=== PATIENT | male | born 1970 | race Caucasian/White ===

== ENCOUNTER 2016-10-25 12:25 | Emergency (ER) | payer OTHER ==
--- NOTE | 2016-10-25 15:17 | DIAGNOSTIC IMAGING REPORT ---
PROCEDURE: XR CHEST 1 VIEW INDICATION: CHEST PAIN TECHNIQUE: Portable AP view 03:08 p.m. COMPARISON: Chest 06/28/2015 FINDINGS: Lungs are clear. Heart and mediastinum are normal. Thorax is normal. IMPRESSION: 1. Negative chest.
--- NOTE | 2016-10-25 17:11 | ED CLINICAL REPORT ---
Clinical Report - Physicians/Mid Levels [facility] [address] [place] [address] 10/25/2016 12:26 Patient: MAGO KAUR Time Seen: 12:45. Arrived- By private vehicle. Historian- patient. HISTORY OF PRESENT ILLNESS Chief Complaint: CHEST PAIN. At its maximum, severity described as 7 / 10. When seen in the E.D., severity described as 1 / 10. Modifying factors- worsened by exertion. Relieved by rest. It is described as aching and it is described as located in the central chest area and radiating to the neck. This started about 2 weeks ago and is still present but is better now. It was abrupt in onset and has been constant and waxing/waning. Onset during moderate exertion. The patient has had nausea. No vomiting. He has had difficulty breathing ("when it happens it takes my breath away"). REVIEW OF SYSTEMS No chills, fever, sweats, calf pain or cough. No pedal edema, abdominal pain, black stools, bloody stools or constipation. He has had palpitations. He has had mild loose stools (chronically). He has had mild transient dizziness described as a light-headedness. All systems otherwise negative, except as recorded above. PAST HISTORY [facility] - [facility]. Problems: Diabetes Mellitus. Head Injury. Contusion. Fall. Colitis. GERD. Cellulitis. Back Pain. Additional Surgeries: Hernia Repair. Knee Surgery. Vasectomy. Medications: Claritin Oral. MetFORMIN HCl Oral. Lipitor Oral. PriLOSEC Oral. Allergies: Sulfa Antibiotics. SOCIAL HISTORY Smoker- current status unknown. No alcohol use or drug use. FAMILY HISTORY Cancer in first-degree relative (father). multiple family members with melanoma. ADDITIONAL NOTES The nursing notes have been reviewed. PHYSICAL EXAM Vital Signs: 10/25/2016 12:31 BP: 122/86. HR: 91. RR: 20. O2 saturation: 95%. Temp: 98.4 F. Have been reviewed. Appearance: Alert. No acute distress. Eyes: Pupils equal, round and reactive to light. ENT: Pharynx normal. Neck: Normal inspection. Neck supple. CVS: Normal heart rate and rhythm. Heart sounds normal. Respiratory: No respiratory distress. Breath sounds normal. Abdomen: Soft and nontender. Bowel sounds normal. No organomegaly. No mass. Back: Normal external inspection. No CVA tenderness. Skin: Skin warm and dry. Normal skin color. Normal skin turgor. Extremities: Extremities exhibit normal ROM. No calf tenderness. No lower extremity edema. LABS, X-RAYS, AND EKG EKG: Nondiagnostic Q waves in lead II, III and aVF. Sinus arrhythmia. Prior EKG unavailable. The study has been independently viewed by me. Chest X-ray: No acute disease. The X-rays were independently viewed by me. Laboratory Tests: CBC w Diff: (BISI: 10/25/2016 12:50) ( MsgRcvd 10/25/2016 13:16) Final results Test Result Flag Units (Reference) WHITE BLOOD COUNT 9.7 K/uL (4.5-11.5) RED BLOOD COUNT 5.37 M/uL (4.50-5.90) HEMOGLOBIN 15.6 gm/dL (13.5-17.5) HEMATOCRIT 46.7 % (41.0-53.0) MEAN CELL VOLUME 87 fL (80-100) MEAN CORPUSCULAR HGB 29 pg (26-34) MEAN CORPUSCULAR HGB CONC 33 g/dL (31-37) RED CELL DISTRIBUTION WIDTH 12.9 % (11.6-14.8) PLATELET COUNT 254 K/uL (150-400) NEUTROPHIL % 70.8 % (50-75) LYMPH % 22.0 L % (25-40) MONO % 6.3 % (3-14) EOSINOPHIL % 0.5 % (0-4) BASOPHIL % 0.4 % (0-2) [id number]: (BISI: 10/25/2016 12:50) ( MsgRcvd 10/25/2016 15:29) Final results Test Result Flag Units (Reference) D-DIMER QUANTITATIVE < 0.27 L ug/mLFEU (0.27-0.52) The primary value of this quantitative assay relates toits negative predictive value (i.e. exclusion) of pulmonaryembolism/deep vein thrombosis/DIC.Elevated levels of d-dimer may also occur with:, age, cancer, inflammation, liver disease,post-op, infection, hematoma, coronary disease, peripheralarteriopathy, bleeding disorders and thrombolytic treatment.Results should be correlated with other clinical andradiological data.Testing Methodology: Latex Immunoassay CHEM 13 PANEL: (BISI: 10/25/2016 12:50) ( MsgRcvd 10/25/2016 13:34) Final results Test Result Flag Units (Reference) GLUCOSE 105 mg/dL (70-110) BUN 16 mg/dL (7-18) CREATININE 1.0 mg/dL (0.6-1.3) Estimated GFR >60 mL/min Estimated GFR- >60 mL/min Note: Persistent reduction over 3 months in eGFR<60 mL/min/1.73 m2 defines CKD. Patients with eGFR values>=60 mL/min/1.73 m2 may also have CKD if evidence ofpersistent proteinuria. Additional information may be foundat [email or web address]. SODIUM 142 mmol/L (136-145) POTASSIUM 3.9 mmol/L (3.5-5.1) CHLORIDE 106 mmol/L (98-107) CARBON DIOXIDE 23 mmol/L (21-32) CALCIUM 8.9 mg/dL (8.5-10.1) TOTAL PROTEIN 7.7 g/dL (6.4-8.2) ALBUMIN 4.1 g/dL (3.3-5.0) BILIRUBIN, TOTAL 0.8 mg/dL (0.0-1.0) ALKALINE PHOSPHATASE 89 U/L (46-116) AST (SGOT) 26 U/L (15-37) ALT (SGPT) 65 U/L (12-78) MAGNESIUM 1.7 L mg/dL (1.8-2.4) CPK 99 U/L (24-260) TROPONIN I <0.05 ng/mL (0.00-1.5) TROPONIN REFERENCE RANGE:<0.1 NEGATIVE0.1-1.5 INDETERMINANT>1.5 POSITIVE . PROGRESS AND PROCEDURES Course of Care: Patient is stable. Discussed case with patient's primary care provider, (I spoke with Dr. Jain. I reviewed the patient's history, examination findings and results of his studies. He agrees that given the duration of the patient's symptoms that acute ischemia is unlikely. However, he would like him to be seen in the office tomorrow by his PA, Todd Hunter. They will arrange for a stress test and further workup.). Reviewed test results and need for additional work-up. Agreed upon treatment plan. Health care provider will see patient in office. Patient/family counseled. Old medical records reviewed. Disposition: Discharged. Condition: stable. CLINICAL IMPRESSION Chest pain. INSTRUCTIONS No strenuous activity. Rest. Do not work until released. Avoid stimulants (such as cigarettes, coffee, cold medicines, sinus medicines, street drugs). (Follow up with Dr. Jain at the [facility] tomorrow as discussed). Warnings: Further evaluation is necessary. GENERAL WARNINGS: Return or contact your physician immediately if your condition worsens or changes unexpectedly, if not improving as expected, or if other problems arise. Your Current Medications: CONTINUE TAKING THE FOLLOWING MEDICATIONS: Claritin Oral. Lipitor Oral. MetFORMIN HCl Oral. PriLOSEC Oral. OTC Medications: Aspirin 325 mg (available over the counter): take 1 orally every 24 hours. Dispense thirty (30). No refills. Follow-up: Follow up with a principal consulting engineer- as recommended by your primary care physician. Understanding of the discharge instructions verbalized by patient. Follow-up with: [facility], , , [address], , [place], [address] Follow up tomorrow. Call for an appointment. (Electronically signed by Esdras Hernández MD 10/27/2016 22:54)
--- NOTE | 2016-10-25 17:11 | ED ORDER SUMMARY ---
..... Patient: MAGO KAUR OrderSheet [facility] VisitID: [id number] [address] [place] [address] 45y, M Registration Date/Time: 10/25/2016 ORDER SHEET Weight: 116.5 kg (stated) Allergies: Sulfa Antibiotics GENERAL ORDERS: Medication Aide (Continuous) (13:03 10/25/2016 LWhalen R.N. per protocol) (13:05 LWhalen R.N.) (13:07 LNations ER Tech1) Cardiac Panel Stat (13:04 10/25/2016 LWhalen R.N. per protocol) (Ack 13:04 Camner) (19:12 LWhalen R.N.) Oxygen (2 L/min) (NC) (13:04 10/25/2016 LWhalen R.N. per protocol) (13:05 LWhalen R.N.) Pulse oximeter (13:10/25/2016 LWhalen R.N. per protocol) (13:05 LWhalen R.N.) EKG - ER Stat (13:04 10/25/2016 LWhalen R.N. per protocol) (Ack 13:04 Dmitriyrsheri) (13:04 KHoerner) Vitals (13:04 10/25/2016 LWhalen R.N. per protocol) (13:05 LWhalen R.N.) D-Dimer Urgent (14:56 10/25/2016 Lary STODDARD) (Ack 14:59 JACKoelizandro) (19:12 LWhalen R.N.) Chest 1V Urgent (14:56 10/25/2016 Lary STODDARD) (Ack 14:59 Blake) (18:00 Adry R.N.) (18:00 Wing) MEDICATION ORDERS: Aspirin PO 325 mg (NOW) (13:04 10/25/2016 LWhalen R.N. per protocol) (13:04 LWhalen R.N.) IV FLUIDS: IV Saline Lock (13:04 10/25/2016 LWhalen R.N. per protocol) (13:05 LWhalen R.N.) ORDER SHEET NOTES: [Electronically signed by Mary Regalado R.N. (19:12 10/25/2016)] [Electronically signed by Esdras Hernández MD (22:54 10/27/2016)] [Electronically locked/signed by Mary Regalado R.N. (19:12 10/25/2016)]
--- NOTE | 2016-10-25 17:11 | ED ORDER SUMMARY ---
..... Patient: MAGO KAUR OrderSheet [facility] VisitID: [id number] [address] [place] [address] 45y, M Registration Date/Time: 10/25/2016 ORDER SHEET Weight: 116.5 kg (stated) Allergies: Sulfa Antibiotics GENERAL ORDERS: Clinical Engineering Director (Continuous) (13:03 10/25/2016 LWhalen R.N. per protocol) (13:05 LWhalen R.N.) (13:07 LNations ER Tech1) Cardiac Panel Stat (13:04 10/25/2016 LWhalen R.N. per protocol) (Ack 13:04 Camner) (19:12 LWhalen R.N.) Oxygen (2 L/min) (NC) (13:04 10/25/2016 LWhalen R.N. per protocol) (13:05 LWhalen R.N.) Pulse oximeter (13:10/25/2016 LWhalen R.N. per protocol) (13:05 LWhalen R.N.) EKG - ER Stat (13:04 10/25/2016 LWhalen R.N. per protocol) (Ack 13:04 Dmitriyrsheri) (13:04 KHoerner) Vitals (13:04 10/25/2016 LWhalen R.N. per protocol) (13:05 LWhalen R.N.) D-Dimer Urgent (14:56 10/25/2016 Lary STODDARD) (Ack 14:59 JACKoelizandro) (19:12 LWhalen R.N.) Chest 1V Urgent (14:56 10/25/2016 Lary STODDARD) (Ack 14:59 Blake) (18:00 Adry R.N.) (18:00 Wing) MEDICATION ORDERS: Aspirin PO 325 mg (NOW) (13:04 10/25/2016 LWhalen R.N. per protocol) (13:04 LWhalen R.N.) IV FLUIDS: IV Saline Lock (13:04 10/25/2016 LWhalen R.N. per protocol) (13:05 LWhalen R.N.) ORDER SHEET NOTES: [Electronically signed by Mary Regalado R.N. (19:12 10/25/2016)] [Electronically signed by Esdras Hernández MD (22:54 10/27/2016)] [Electronically locked/signed by Mary Regalado R.N. (19:12 10/25/2016)]
--- NOTE | 2016-10-25 17:11 | ED NURSING NOTES ---
Clinical Report - Nurses [facility] [address] [place] [address] 10/25/2016 12:26 Patient: MAGO KAUR TRIAGE Triage time 12:Oct 25 2016. Acuity: LEVEL 2. Chief Complaint: CHEST PAIN. CHAGO COMA SCORE: [place] Coma Scale: 15- eyes open spontaneously (4); best verbal response- oriented x 4 (5); best motor response- obeys commands (6). --12:59 Mary Regalado R.N. 12:31 10/25/16. BP: 122/86. HR: 91. RR: 20. O2 saturation: 95%. Temp: 98.4 F. Pain level now 5/10. --12:59 Mary Regalado R.N. Weight: 116.5 kg stated. Height/Length: 70 inches Per Patient. BMI: 36.9. --12:35 Mary Regalado R.N. Medications PriLOSEC Oral. --12:32 Mary Regalado R.N. Lipitor Oral. --12:32 Mary Regalado R.N. MetFORMIN HCl Oral. --12:33 Mary Regalado R.N. Claritin Oral. --12:33 Mary Regalado R.N. Allergies Sulfa Antibiotics. --12:32 Mary Regalado R.N. History Arrived by private vehicle. Historian: patient. Accompanied by family. Primary physician (maverick boland MD). This started today. ( While working was having chest pains and SOB. Feeling fatigued from pain.). He has had difficulty breathing. No sweating episodes, nausea, vomiting, fever or cough. PAST MEDICAL HX: Diabetes mellitus. No history of hypertension, heart disease or lung disease. Immunizations: up-to-date. SOCIAL HX: Smoker- current status unknown. No alcohol use or drug use. No infectious disease exposure. SELF HARM ASSESSMENT: A self harm assessment was performed. The patient answered "yes" to the question "Have you recently felt down, depressed, or hopeless?" and "no" to the question "Do you have thoughts of harming or killing yourself?". FALL RISK ASSESSMENT: Fall risk assessment completed. No fall risk identified. NUTRITIONAL RISK ASSESSMENT: The nutritional risk assessment revealed no deficiencies. FUNCTIONAL ASSESSMENT: Functional assessment: no impairments noted. LEARNING NEEDS ASSESSMENT: The learning needs assessment revealed no barriers. ABUSE ASSESSMENT: Abuse assessment: (yes) The patient was asked "Do you feel safe in your home?". SKIN INTEGRITY ASSESSMENT: Skin integrity risk assessment completed. No skin integrity risk identified. --12:59 Mary Regalado R.N. PROBLEMS: Prediabetic . Head Injury. Contusion. Fall. Colitis. GERD. Cellulitis. Tetanus Status. Immunizations. Back Pain. --12:33 Mary Regalado R.N. ADDITIONAL SURGERIES: Hernia Repair. Knee Surgery. Vasectomy. --12:33 Mary Regalado R.N. Interventions ID band on patient. --12:59 Mary Regalado R.N. PHYSICAL ASSESSMENT Ambulatory to room. GENERAL / NEURO / PSYCH: Alert. Oriented X 4. Appears in no acute distress. HEENT: Mucous membranes are pink. RESPIRATORY: Respirations not labored. Chest nontender. Chest wall tenderness. Breath sounds within normal limits. CVS: Normal sinus rhythm noted. Pulses within normal limits. Capillary refill less than 2 seconds. GI / : Abdomen soft and nontender. ( last BM this am). EXTREMITIES: No lower extremity edema. SKIN: Skin is warm and dry. Normal skin turgor. Skin is non-tender. --13:00 Mary eRgalado R.N. NURSING PROGRESS NOTES The initial plan of care for this patient includes an assessment with efforts to address patient positioning and appropriate ambient lighting; impairment of the cardiovascular system. surveillance monitor, pulse oximeter and NIBP monitor placed on patient. Patient gowned. Head of bed elevated (90). Reassurance given. Call light placed in reach. Side rails up x 1. Bed placed in lowest position. Brakes of bed on. --13:01 Mary Regalado R.N. 12:49 10/25/2016 Aspirin PO Tablets 325 mg given. Allergies verified and confirmed 5 rights. --13:04 Mary Regalado R.N. 12:50 10/25/2016 Site #1 started via IV in the left wrist with an 20g angiocath, with aseptic technique and good blood return; two attempts. Blood drawn: rainbow set. Labeled in the presence of the patient and sent to the lab. Saline lock flushed with 10 mL saline. --13:05 Mary Regalado R.N. EKG time: (1235). EKG was ordered, performed by a tech and shown to the ED physician. --13:28 Merly Duncan, DASHA Tech1 18:15 10/25/16. BP: 100/68. HR: 76. RR: 18. O2 saturation: 99%. 17:10/25/16. BP: 107/55. HR: 76. RR: 18. O2 saturation: 98%. 16:10/25/16. BP: 99/74. HR: 80. RR: 20. O2 saturation: 99%. 15:10/25/16. BP: 99/72. HR: 80. RR: 18. O2 saturation: 99%. 14:10/25/16. BP: 96/68. HR: 77. RR: 16. O2 saturation: 99%. 13:10/25/16. BP: 119/84. HR: 86. RR: 18. O2 saturation: 98%. 13:10/25/16. BP: 119/96. HR: 88. RR: 18. O2 saturation: 97%. 12:10/25/16. BP: 122/86. HR: 94. RR: 17. O2 saturation: 95%. --18:56 Mary Regalado R.N. DISPOSITION / DISCHARGE Departure time: 18:40 Oct 25 2016. Condition at departure: improved. No learning barriers present. Discharge instructions provided and reviewed with the patient. Reviewed warnings. Reviewed medication(s). Treatments reviewed. Reviewed referrals. Patient verbalized understanding. Written instructions provided in Azerbaijani. The patient was discharged home. He left the Emergency Department ambulatory and via private vehicle. Patient driving. --18:57 Mary Regalado R.N. 18:15 10/25/16. BP: 100/68. HR: 76. RR: 18. O2 saturation: 99%. --18:57 Mary Regalado R.N. Locked/Released at 10/25/2016 19:12 by Mary Regalado R.N.
--- NOTE | 2016-10-25 17:11 | ED CLINICAL REPORT ---
Clinical Report - Physicians/Mid Levels [facility] [address] [place] [address] 10/25/2016 12:26 Patient: MAGO KAUR Time Seen: 12:45. Arrived- By private vehicle. Historian- patient. HISTORY OF PRESENT ILLNESS Chief Complaint: CHEST PAIN. At its maximum, severity described as 7 / 10. When seen in the E.D., severity described as 1 / 10. Modifying factors- worsened by exertion. Relieved by rest. It is described as aching and it is described as located in the central chest area and radiating to the neck. This started about 2 weeks ago and is still present but is better now. It was abrupt in onset and has been constant and waxing/waning. Onset during moderate exertion. The patient has had nausea. No vomiting. He has had difficulty breathing ("when it happens it takes my breath away"). REVIEW OF SYSTEMS No chills, fever, sweats, calf pain or cough. No pedal edema, abdominal pain, black stools, bloody stools or constipation. He has had palpitations. He has had mild loose stools (chronically). He has had mild transient dizziness described as a light-headedness. All systems otherwise negative, except as recorded above. PAST HISTORY [facility] - [facility]. Problems: Diabetes Mellitus. Head Injury. Contusion. Fall. Colitis. GERD. Cellulitis. Back Pain. Additional Surgeries: Hernia Repair. Knee Surgery. Vasectomy. Medications: Claritin Oral. MetFORMIN HCl Oral. Lipitor Oral. PriLOSEC Oral. Allergies: Sulfa Antibiotics. SOCIAL HISTORY Smoker- current status unknown. No alcohol use or drug use. FAMILY HISTORY Cancer in first-degree relative (father). multiple family members with melanoma. ADDITIONAL NOTES The nursing notes have been reviewed. PHYSICAL EXAM Vital Signs: 10/25/2016 12:31 BP: 122/86. HR: 91. RR: 20. O2 saturation: 95%. Temp: 98.4 F. Have been reviewed. Appearance: Alert. No acute distress. Eyes: Pupils equal, round and reactive to light. ENT: Pharynx normal. Neck: Normal inspection. Neck supple. CVS: Normal heart rate and rhythm. Heart sounds normal. Respiratory: No respiratory distress. Breath sounds normal. Abdomen: Soft and nontender. Bowel sounds normal. No organomegaly. No mass. Back: Normal external inspection. No CVA tenderness. Skin: Skin warm and dry. Normal skin color. Normal skin turgor. Extremities: Extremities exhibit normal ROM. No calf tenderness. No lower extremity edema. LABS, X-RAYS, AND EKG EKG: Nondiagnostic Q waves in lead II, III and aVF. Sinus arrhythmia. Prior EKG unavailable. The study has been independently viewed by me. Chest X-ray: No acute disease. The X-rays were independently viewed by me. Laboratory Tests: CBC w Diff: (BISI: 10/25/2016 12:50) ( MsgRcvd 10/25/2016 13:16) Final results Test Result Flag Units (Reference) WHITE BLOOD COUNT 9.7 K/uL (4.5-11.5) RED BLOOD COUNT 5.37 M/uL (4.50-5.90) HEMOGLOBIN 15.6 gm/dL (13.5-17.5) HEMATOCRIT 46.7 % (41.0-53.0) MEAN CELL VOLUME 87 fL (80-100) MEAN CORPUSCULAR HGB 29 pg (26-34) MEAN CORPUSCULAR HGB CONC 33 g/dL (31-37) RED CELL DISTRIBUTION WIDTH 12.9 % (11.6-14.8) PLATELET COUNT 254 K/uL (150-400) NEUTROPHIL % 70.8 % (50-75) LYMPH % 22.0 L % (25-40) MONO % 6.3 % (3-14) EOSINOPHIL % 0.5 % (0-4) BASOPHIL % 0.4 % (0-2) [id number]: (BISI: 10/25/2016 12:50) ( MsgRcvd 10/25/2016 15:29) Final results Test Result Flag Units (Reference) D-DIMER QUANTITATIVE < 0.27 L ug/mLFEU (0.27-0.52) The primary value of this quantitative assay relates toits negative predictive value (i.e. exclusion) of pulmonaryembolism/deep vein thrombosis/DIC.Elevated levels of d-dimer may also occur with:, age, cancer, inflammation, liver disease,post-op, infection, hematoma, coronary disease, peripheralarteriopathy, bleeding disorders and thrombolytic treatment.Results should be correlated with other clinical andradiological data.Testing Methodology: Latex Immunoassay CHEM 13 PANEL: (BISI: 10/25/2016 12:50) ( MsgRcvd 10/25/2016 13:34) Final results Test Result Flag Units (Reference) GLUCOSE 105 mg/dL (70-110) BUN 16 mg/dL (7-18) CREATININE 1.0 mg/dL (0.6-1.3) Estimated GFR >60 mL/min Estimated GFR- >60 mL/min Note: Persistent reduction over 3 months in eGFR<60 mL/min/1.73 m2 defines CKD. Patients with eGFR values>=60 mL/min/1.73 m2 may also have CKD if evidence ofpersistent proteinuria. Additional information may be foundat [email or web address].org. SODIUM 142 mmol/L (136-145) POTASSIUM 3.9 mmol/L (3.5-5.1) CHLORIDE 106 mmol/L (98-107) CARBON DIOXIDE 23 mmol/L (21-32) CALCIUM 8.9 mg/dL (8.5-10.1) TOTAL PROTEIN 7.7 g/dL (6.4-8.2) ALBUMIN 4.1 g/dL (3.3-5.0) BILIRUBIN, TOTAL 0.8 mg/dL (0.0-1.0) ALKALINE PHOSPHATASE 89 U/L (46-116) AST (SGOT) 26 U/L (15-37) ALT (SGPT) 65 U/L (12-78) MAGNESIUM 1.7 L mg/dL (1.8-2.4) CPK 99 U/L (24-260) TROPONIN I <0.05 ng/mL (0.00-1.5) TROPONIN REFERENCE RANGE:<0.1 NEGATIVE0.1-1.5 INDETERMINANT>1.5 POSITIVE . PROGRESS AND PROCEDURES Course of Care: Patient is stable. Discussed case with patient's primary care provider, (I spoke with Dr. Jain. I reviewed the patient's history, examination findings and results of his studies. He agrees that given the duration of the patient's symptoms that acute ischemia is unlikely. However, he would like him to be seen in the office tomorrow by his PA, Todd Hunter. They will arrange for a stress test and further workup.). Reviewed test results and need for additional work-up. Agreed upon treatment plan. Health care provider will see patient in office. Patient/family counseled. Old medical records reviewed. Disposition: Discharged. Condition: stable. CLINICAL IMPRESSION Chest pain. INSTRUCTIONS No strenuous activity. Rest. Do not work until released. Avoid stimulants (such as cigarettes, coffee, cold medicines, sinus medicines, street drugs). (Follow up with Dr. Jain at the [facility] tomorrow as discussed). Warnings: Further evaluation is necessary. GENERAL WARNINGS: Return or contact your physician immediately if your condition worsens or changes unexpectedly, if not improving as expected, or if other problems arise. Your Current Medications: CONTINUE TAKING THE FOLLOWING MEDICATIONS: Claritin Oral. Lipitor Oral. MetFORMIN HCl Oral. PriLOSEC Oral. OTC Medications: Aspirin 325 mg (available over the counter): take 1 orally every 24 hours. Dispense thirty (30). No refills. Follow-up: Follow up with a scraper hand- as recommended by your primary care physician. Understanding of the discharge instructions verbalized by patient. Follow-up with: [facility], , , [address], , [place], [address] Follow up tomorrow. Call for an appointment. (Electronically signed by Esdras Hernández MD 10/27/2016 22:54)
--- NOTE | 2016-10-28 02:40 | ED MAR SUMMARY ---
..... Medication Administration Record [facility] [address] [place] [address] Patient: AMGO KAUR Visit ID: [id number] 45y, M Weight: 116.5 kg Height/Length: 70 in BMI: 36.9 ALLERGIES: Sulfa Antibiotics Given 12:49 10/25/2016 Mary Regalado R.N. Medication Administered: ASPIRIN [PO], Dose: 325 mg Tablets PO. Medication Ordered: Aspirin PO 325 mg (NOW).
--- NOTE | 2016-10-28 02:40 | ED MAR SUMMARY ---
..... Medication Administration Record [facility] [address] [place] [address] Patient: MAGO KAUR Visit ID: [id number] 45y, M Weight: 116.5 kg Height/Length: 70 in BMI: 36.9 ALLERGIES: Sulfa Antibiotics Given 12:49 10/25/2016 Mary Regalado R.N. Medication Administered: ASPIRIN [PO], Dose: 325 mg Tablets PO. Medication Ordered: Aspirin PO 325 mg (NOW).
--- NOTE | 2016-10-28 02:40 | ED DISCHARGE INSTRUCTIONS ---
Patient: MAGO KAUR General Instructions [facility] VisitID: [id number] [place] [address] 45y, M Registration Date/Time: 10/25/2016 Chest pain. INSTRUCTIONS No strenuous activity. Rest. Do not work until released. Avoid stimulants (such as cigarettes, coffee, cold medicines, sinus medicines, street drugs). (Follow up with Dr. Jain at the [facility] tomorrow as discussed). Warnings: Further evaluation is necessary. GENERAL WARNINGS: Return or contact your physician immediately if your condition worsens or changes unexpectedly, if not improving as expected, or if other problems arise. Your Current Medications: CONTINUE TAKING THE FOLLOWING MEDICATIONS: Claritin Oral. Lipitor Oral. MetFORMIN HCl Oral. PriLOSEC Oral. OTC Medications: Aspirin 325 mg (available over the counter): take 1 orally every 24 hours. Dispense thirty (30). No refills. Follow-up: Follow up with a seat covers trimmer- as recommended by your primary care physician. Understanding of the discharge instructions verbalized by patient. Follow-up with: [facility], , , [address], , [place], [address] Follow up tomorrow. Call for an appointment. ADDITIONAL INFORMATION Chest Pain, Uncertain Cause Chest pain can happen for a number of reasons. Sometimes the cause can not be determined. If yourcondition does not seem serious, and your pain does not appear to be coming from your heart, your doctor may recommend watching it closely. Sometimes the signs of a serious problem take more time to appear. Therefore, watch for the warning signs listed below. Home care After your visit, follow these recommendations: Rest today and avoid strenuous activity. Take any prescribed medicine as directed. Follow-up care Follow up with your doctor or this facility as instructed or if you do not start to feel better within 24 hours. Call 911 Get immediate medical attention if any of the following occur: A change in the type of pain: if it feels different, becomes more severe, lasts longer, or begins to spread into your shoulder, arm, neck, jaw or back Shortness of breath or increased pain with breathing Weakness, dizziness, or fainting Rapid heart beat Get prompt medical attention Call your doctor right away if any of the following occur: Cough with dark colored sputum (phlegm) or blood Fever of 100.4F(38C) or higher, or as directed by your health care provider Swelling, pain or redness in one leg Aspirin Oral tablet What is this medicine? ASPIRIN ( pir in) is a pain reliever. It is used to treat mild pain and fever. This medicine is also used as directed by a doctor to prevent and to treat heart attacks, to prevent strokes, and to treat arthritis or inflammation. How should I use this medicine? Take this medicine by mouth with a glass of water. Follow the directions on the package or prescription label. You can take this medicine with or without food. If it upsets your stomach, take it with food. Do not take your medicine more often than directed. Talk to your drawing machine operator regarding the use of this medicine in children. While this drug may be prescribed for children as young as 12 years of age for selected conditions, precautions do apply. Children and teenagers should not use this medicine to treat chicken pox or flu symptoms unless directed by a doctor. Patients over 65 years old may have a stronger reaction and need a smaller dose. What side effects may I notice from receiving this medicine? Side effects that you should report to your doctor or health home child care provider as soon as possible: allergic reactions like skin rash, itching or hives, swelling of the face, lips, or tongue breathing problems changes in hearing, ringing in the ears confusion general ill feeling or flu-like symptoms pain on swallowing redness, blistering, peeling or loosening of the skin, including inside the mouth or nose signs and symptoms of bleeding such as bloody or black, tarry stools; red or dark-brown urine; spitting up blood or brown material that looks like coffee grounds; red spots on the skin; unusual bruising or bleeding from the eye, gums, or nose trouble passing urine or change in the amount of urine unusually weak or tired yellowing of the eyes or skin Side effects that usually do not require medical attention (report to your doctor or health home child care provider if they continue or are bothersome): diarrhea or constipation nausea, vomiting stomach gas, heartburn What may interact with this medicine? Do not take this medicine with any of the following medications: cidofovir ketorolac probenecid This medicine may also interact with the following medications: alcohol alendronate bismuth subsalicylate flavocoxid herbal supplements like feverfew, garlic, marlene, ginkgo biloba, horse chestnut medicines for diabetes or glaucoma like acetazolamide, methazolamide medicines for gout medicines that treat or prevent blood clots like enoxaparin, heparin, ticlopidine, warfarin other aspirin and aspirin-like medicines NSAIDs, medicines for pain and inflammation, like ibuprofen or naproxen pemetrexed sulfinpyrazone varicella live vaccine What if I miss a dose? If you are taking this medicine on a regular schedule and miss a dose, take it as soon as you can. If it is almost time for your next dose, take only that dose. Do not take double or extra doses. Where should I keep my medicine? Keep out of the reach of children. Store at room temperature between 15 and 30 degrees C (59 and 86 degrees F). Protect from heat and moisture. Do not use this medicine if it has a strong vinegar smell. Throw away any unused medicine after the expiration date. What should I tell my health care provider before I take this medicine? They need to know if you have any of these conditions: anemia asthma bleeding problems child with chickenpox, the flu, or other viral infection diabetes gout if you frequently drink alcohol containing drinks kidney disease liver disease low level of vitamin K lupus smoke tobacco stomach ulcers or other problems an unusual or allergic reaction to aspirin, tartrazine dye, other medicines, dyes, or preservatives or trying to get breast-feeding What should I watch for while using this medicine? If you are treating yourself for pain, tell your doctor or health home child care provider if the pain lasts more than 10 days, if it gets worse, or if there is a new or different kind of pain. Tell your doctor if you see redness or swelling. Also, check with your doctor if you have a fever that lasts for more than 3 days. Only take this medicine to prevent heart attacks or blood clotting if prescribed by your doctor or health home child care provider. Do not take aspirin or aspirin-like medicines with this medicine. Too much aspirin can be dangerous. Always read the labels carefully. This medicine can irritate your stomach or cause bleeding problems. Do not smoke cigarettes or drink alcohol while taking this medicine. Do not lie down for 30 minutes after taking this medicine to prevent irritation to your throat. If you are scheduled for any medical or dental procedure, tell your healthcare provider that you are taking this medicine. You may need to stop taking this medicine before the procedure. You have been given the following additional information: Chest Pain, Uncertain Cause Aspirin Oral tablet No strenuous activity. Rest. Do not work until released. (Electronically signed by Esdras Hernández MD 10/27/2016 22:54)
--- NOTE | 2016-10-28 02:40 | ED MED RECONCILIATION SUMMARY ---
Patient: MAGO KAUR Medication Reconciliation Report [facility] VisitID: [id number] [address] [place] [address] 45y, M Registration Date/Time: 10/25/2016 Weight: 116.5 kg Height/Length: 70 in. BMI: 36.9 ALLERGIES: Sulfa Antibiotics The patient's Home Medications are listed below: CONTINUE TAKING THE FOLLOWING MEDICATIONS: Claritin Oral Lipitor Oral MetFORMIN HCl Oral PriLOSEC Oral The source(s) of the original Home Medication information: Not obtained. The following Medications were given to the patient in the Emergency Department: Aspirin [PO] PO 325 mg, administered: 10/25/2016 12:49:00 PM The following Medications were prescribed to the patient: Aspirin 325 mg (available over the counter): take 1 orally every 24 hours. Dispense thirty (30). No refills. -- Esdras Hernández MD
--- NOTE | 2016-10-28 02:40 | ED DISCHARGE INSTRUCTIONS ---
Patient: MAGO KAUR General Instructions [facility] VisitID: [id number] [place] [address] 45y, M Registration Date/Time: 10/25/2016 Chest pain. INSTRUCTIONS No strenuous activity. Rest. Do not work until released. Avoid stimulants (such as cigarettes, coffee, cold medicines, sinus medicines, street drugs). (Follow up with Dr. Jain at the [facility] tomorrow as discussed). Warnings: Further evaluation is necessary. GENERAL WARNINGS: Return or contact your physician immediately if your condition worsens or changes unexpectedly, if not improving as expected, or if other problems arise. Your Current Medications: CONTINUE TAKING THE FOLLOWING MEDICATIONS: Claritin Oral. Lipitor Oral. MetFORMIN HCl Oral. PriLOSEC Oral. OTC Medications: Aspirin 325 mg (available over the counter): take 1 orally every 24 hours. Dispense thirty (30). No refills. Follow-up: Follow up with a merchandise team manager- as recommended by your primary care physician. Understanding of the discharge instructions verbalized by patient. Follow-up with: [facility], , , [address], , [place], [address] Follow up tomorrow. Call for an appointment. ADDITIONAL INFORMATION Chest Pain, Uncertain Cause Chest pain can happen for a number of reasons. Sometimes the cause can not be determined. If yourcondition does not seem serious, and your pain does not appear to be coming from your heart, your doctor may recommend watching it closely. Sometimes the signs of a serious problem take more time to appear. Therefore, watch for the warning signs listed below. Home care After your visit, follow these recommendations: Rest today and avoid strenuous activity. Take any prescribed medicine as directed. Follow-up care Follow up with your doctor or this facility as instructed or if you do not start to feel better within 24 hours. Call 911 Get immediate medical attention if any of the following occur: A change in the type of pain: if it feels different, becomes more severe, lasts longer, or begins to spread into your shoulder, arm, neck, jaw or back Shortness of breath or increased pain with breathing Weakness, dizziness, or fainting Rapid heart beat Get prompt medical attention Call your doctor right away if any of the following occur: Cough with dark colored sputum (phlegm) or blood Fever of 100.4F(38C) or higher, or as directed by your health care provider Swelling, pain or redness in one leg Aspirin Oral tablet What is this medicine? ASPIRIN ( pir in) is a pain reliever. It is used to treat mild pain and fever. This medicine is also used as directed by a doctor to prevent and to treat heart attacks, to prevent strokes, and to treat arthritis or inflammation. How should I use this medicine? Take this medicine by mouth with a glass of water. Follow the directions on the package or prescription label. You can take this medicine with or without food. If it upsets your stomach, take it with food. Do not take your medicine more often than directed. Talk to your emu farm worker regarding the use of this medicine in children. While this drug may be prescribed for children as young as 12 years of age for selected conditions, precautions do apply. Children and teenagers should not use this medicine to treat chicken pox or flu symptoms unless directed by a doctor. Patients over 65 years old may have a stronger reaction and need a smaller dose. What side effects may I notice from receiving this medicine? Side effects that you should report to your doctor or health skin care specialist as soon as possible: allergic reactions like skin rash, itching or hives, swelling of the face, lips, or tongue breathing problems changes in hearing, ringing in the ears confusion general ill feeling or flu-like symptoms pain on swallowing redness, blistering, peeling or loosening of the skin, including inside the mouth or nose signs and symptoms of bleeding such as bloody or black, tarry stools; red or dark-brown urine; spitting up blood or brown material that looks like coffee grounds; red spots on the skin; unusual bruising or bleeding from the eye, gums, or nose trouble passing urine or change in the amount of urine unusually weak or tired yellowing of the eyes or skin Side effects that usually do not require medical attention (report to your doctor or health skin care specialist if they continue or are bothersome): diarrhea or constipation nausea, vomiting stomach gas, heartburn What may interact with this medicine? Do not take this medicine with any of the following medications: cidofovir ketorolac probenecid This medicine may also interact with the following medications: alcohol alendronate bismuth subsalicylate flavocoxid herbal supplements like feverfew, garlic, marlene, ginkgo biloba, horse chestnut medicines for diabetes or glaucoma like acetazolamide, methazolamide medicines for gout medicines that treat or prevent blood clots like enoxaparin, heparin, ticlopidine, warfarin other aspirin and aspirin-like medicines NSAIDs, medicines for pain and inflammation, like ibuprofen or naproxen pemetrexed sulfinpyrazone varicella live vaccine What if I miss a dose? If you are taking this medicine on a regular schedule and miss a dose, take it as soon as you can. If it is almost time for your next dose, take only that dose. Do not take double or extra doses. Where should I keep my medicine? Keep out of the reach of children. Store at room temperature between 15 and 30 degrees C (59 and 86 degrees F). Protect from heat and moisture. Do not use this medicine if it has a strong vinegar smell. Throw away any unused medicine after the expiration date. What should I tell my health care provider before I take this medicine? They need to know if you have any of these conditions: anemia asthma bleeding problems child with chickenpox, the flu, or other viral infection diabetes gout if you frequently drink alcohol containing drinks kidney disease liver disease low level of vitamin K lupus smoke tobacco stomach ulcers or other problems an unusual or allergic reaction to aspirin, tartrazine dye, other medicines, dyes, or preservatives or trying to get breast-feeding What should I watch for while using this medicine? If you are treating yourself for pain, tell your doctor or health skin care specialist if the pain lasts more than 10 days, if it gets worse, or if there is a new or different kind of pain. Tell your doctor if you see redness or swelling. Also, check with your doctor if you have a fever that lasts for more than 3 days. Only take this medicine to prevent heart attacks or blood clotting if prescribed by your doctor or health skin care specialist. Do not take aspirin or aspirin-like medicines with this medicine. Too much aspirin can be dangerous. Always read the labels carefully. This medicine can irritate your stomach or cause bleeding problems. Do not smoke cigarettes or drink alcohol while taking this medicine. Do not lie down for 30 minutes after taking this medicine to prevent irritation to your throat. If you are scheduled for any medical or dental procedure, tell your healthcare provider that you are taking this medicine. You may need to stop taking this medicine before the procedure. You have been given the following additional information: Chest Pain, Uncertain Cause Aspirin Oral tablet No strenuous activity. Rest. Do not work until released. (Electronically signed by Esdras Hernández MD 10/27/2016 22:54)
--- NOTE | 2016-10-28 02:40 | ED MED RECONCILIATION SUMMARY ---
Patient: MAGO KAUR Medication Reconciliation Report [facility] VisitID: [id number] [address] [place] [address] 45y, M Registration Date/Time: 10/25/2016 Weight: 116.5 kg Height/Length: 70 in. BMI: 36.9 ALLERGIES: Sulfa Antibiotics The patient's Home Medications are listed below: CONTINUE TAKING THE FOLLOWING MEDICATIONS: Claritin Oral Lipitor Oral MetFORMIN HCl Oral PriLOSEC Oral The source(s) of the original Home Medication information: Not obtained. The following Medications were given to the patient in the Emergency Department: Aspirin [PO] PO 325 mg, administered: 10/25/2016 12:49:00 PM The following Medications were prescribed to the patient: Aspirin 325 mg (available over the counter): take 1 orally every 24 hours. Dispense thirty (30). No refills. -- Esdras Hernández MD
== END 2016-10-25 18:40 | disposition home or self-care (01) ==
LOC: ED SRH 12:25
DX: R07.9 Chest pain, unspecified (principal); E11.9 Type 2 diabetes mellitus without complications; Z79.84 Long term (current) use of oral hypoglycemic drugs; Z79.899 Other long term (current) drug therapy; Z88.2 Allergy status to sulfonamides
CPT/HCPCS: 90100; 90616; 91556; 92610; 92720; 95059